=== PATIENT | female | born 1990 | race Caucasian/White ===

== ENCOUNTER 2016-12-11 01:10 | Emergency (ER) | payer MEDICAID ==
[2014-12-19 10:55] VITALS: BMI 40.8
[~2016-12-11 01:10] MED LIST: ACETAMINOPHEN500 M1 PO; BUSPAR5 MG PO; FLOVENT HFA 11012 GM INH; IBUPROFEN600 MG PO; PROTONIX40 MG PO; TUMS500 MG PO; ZPAK PO
[2016-12-11 01:44] LABS: BASOPHILS 0.6 % (0-2); EOSINOPHILS 1.3 % (0-7); HEMOGLOBIN 12.2 g/dL (12-16); IMMATURE GRANULOCYTES 0.4 % (0-5); LYMPHOCYTES 26.4 % (15-50); MCH 28.8 pg (26.0-34.0); MCHC 33.9 g/dL (31.0-37.0); MCV 84.9 fL (80.0-100.0); MEAN PLATELET VOLUME 8.7 fL (7.4-10.4); MONOCYTES 5.3 % (2-11); PLATELET COUNT 371 10x3/uL (130-400); RBC 4.24 10x6/uL (4.00-5.40); RDW 13.3 % (11.5-14.5); WBC 10.4 10x3/uL (4.8-10.8)
[2016-12-11 02:00] LABS: ALBUMIN 3.8 g/dL (3.4-5.0); ALKALINE PHOSPHATASE 81 U/L (46-116); ALT (SGPT) 27 U/L (10-68); CALC OSMOLALITY 279 mosm/kg (275-300); CALCIUM 8.9 mg/dL (8.5-10.1); CARBON DIOXIDE 24.8 mmol/L (21.0-32.0); CHLORIDE - SERUM 105 mmol/L (98-107); CREATININE - SERUM 0.8 mg/dL (0.6-1.3); GLUCOSE 100 mg/dL (74-106); PROTEIN - SERUM 7.9 g/dL (6.4-8.2); SODIUM 140 mmol/L (136-145); UREA NITROGEN 15 mg/dL (7-18); eGFR NON AFRICAN AMERICAN > 90 mL/min (90-120)
[2016-12-11 02:02] LABS: POTASSIUM - SERUM 2.9 mmol/L (3.5-5.1)
== END 2016-12-11 02:40 | disposition home or self-care (01) ==
LOC: D.ER 01:10
PROVIDERS: Emergency Medicine
DX: F41.0 Panic disorder [episodic paroxysmal anxiety] (principal)

== ENCOUNTER 2017-03-02 10:30 | Emergency (ER) | payer MEDICAID ==
[2014-12-19 10:55] VITALS: BMI 40.8
[2017-03-02 11:47] LABS: BASOPHILS 0.8 % (0-2); EOSINOPHILS 1.8 % (0-7); HEMATOCRIT 37.8 % (36.0-48.0); HEMOGLOBIN 12.8 g/dL (12-16); IMMATURE GRANULOCYTES 0.1 % (0-5); LYMPHOCYTES 24.2 % (15-50); MCH 29.2 pg (26.0-34.0); MCHC 33.9 g/dL (31.0-37.0); MCV 86.1 fL (80.0-100.0); MEAN PLATELET VOLUME 8.6 fL (7.4-10.4); MONOCYTES 7.2 % (2-11); NEUTROPHILS 65.9 % (40-80); PLATELET COUNT 335 10x3/uL (130-400); RBC 4.39 10x6/uL (4.00-5.40); RDW 13.3 % (11.5-14.5); WBC 8.3 10x3/uL (4.8-10.8)
[2017-03-02 12:52] LABS: HCG URINE NEGATIVE (NEGATIVE)
[2017-03-02 13:16] LABS: APPEARANCE HAZY (CLEAR); BACTERIA MANY /hpf (NONE SEEN); BILIRUBIN NEGATIVE (NEGATIVE); COLOR YELLOW (YELLOW); GLUCOSE NEGATIVE (NEGATIVE); KETONE SMALL mg/dL (NEGATIVE); LEUKOCYTE ESTERASE 1+ (NEGATIVE); NITRITE NEGATIVE (NEGATIVE); PROTEIN NEGATIVE (NEGATIVE); RED CELLS - URINE OCC /hpf (0-5); WHITE CELLS - URINE 0-5 /hpf (0-5)
[2017-03-02 13:17] LABS: MUCUS >1+ /lpf (NONE SEEN)
== END 2017-03-02 18:50 | disposition home or self-care (01) ==
LOC: D.ER 10:30
PROVIDERS: Emergency Medicine
DX: N76.0 Acute vaginitis (principal); K21.9 Gastro-esophageal reflux disease without esophagitis

== ENCOUNTER 2019-03-04 07:10 | Day surgery (SDC) | payer MEDICAID ==
[2019-03-01 11:07] LABS: CALC OSMOLALITY 276 mosm/kg (275-300); CALCIUM 8.8 mg/dL (8.5-10.1); CARBON DIOXIDE 27.8 mmol/L (21.0-32.0); CHLORIDE - SERUM 105 mmol/L (98-107); CREATININE - SERUM 0.7 mg/dL (0.6-1.3); GLUCOSE 89 mg/dL (74-106); POTASSIUM - SERUM 4.2 mmol/L (3.5-5.1); SODIUM 140 mmol/L (136-145); UREA NITROGEN 9 mg/dL (7-18); eGFR NON AFRICAN AMERICAN > 90 mL/min (90-120)
[2019-03-01 11:13] LABS: HEMATOCRIT 37.8 % (36.0-48.0); HEMOGLOBIN 12.9 g/dL (12-16); LYMPHOCYTES 33.4 % (15-50); MCH 29.1 pg (26.0-34.0); MCHC 34.1 g/dL (31.0-37.0); MCV 85.3 fL (80.0-100.0); MEAN PLATELET VOLUME 8.2 fL (7.4-10.4); NEUTROPHILS 57.9 % (40-80); PLATELET COUNT 354 10x3/uL (130-400); RBC 4.43 10x6/uL (4.00-5.40); RDW 13.5 % (11.5-14.5); WBC 7.8 10x3/uL (4.8-10.8)
[~2019-03-04] VITALS: Ht 160 cm; Wt 104.5 kg
[2019-03-04] MEDS ORDERED: BUTALB-APAP-CA1 EACH PO (07:35)
[2019-03-04 07:44] VITALS: BP 119/86; BMI 40.8
[2019-03-04 08:07] LABS: HCG URINE NEGATIVE (NEGATIVE)
[2019-03-04] MEDS ORDERED: IBUPROFEN200 MG PO (18:03)
--- NOTE | 2019-03-04 18:05 | NUR ---
RECIEVED PT FROM SURGERY VIA BED. PT IS STILL GROGGY FROM ANESTHESIA. ABDI NOTED WITH CLEAR, YELLOW URINE. DENIES PAIN OR NEEDS AT THIS TIME. VSS STABLE. RR EVEN AND UNLABORED. FAMILY AT BEDSIDE. BED IN LOWEST POSITION. CALL LIGHT WITHIN REACH. WILL CONTINUE TO MONITOR.
[2019-03-04 18:13] VITALS: BP 119/63; Ht 160 cm; Wt 104.5 kg
--- NOTE | 2019-03-04 18:47 | NUR ---
PT C/O NAUSEA. ZOFRAN ADMINISTERED ORDERED. PT ENCOURAGED TO EAT SOMETHING SHE HAS NOT EATEN SINCE MIDNIGHT. CRACKERS AND LEMON MATCH-E-BE-NASH-SHE-WISH BAND SODA RECIEVED. PT GIVEN COLD WASH CLOTH TO PUT ON FOREHEAD. LIPS AND FACE WENT PALE. BP 128/65. FSBS 114. FAMILY AT BEDSIDE. WILL CONTINUE TO MONITOR.
--- NOTE | 2019-03-04 19:10 | NUR ---
REPORT RECEIVED FROM OFF GOING NURSE. PT IS LAYING IN BED, COMPLAINS OF NAUSEA AT THIS TIME. NO PRN MEDICATIONS AVAILABLE FOR ADMINISTRATION. REWET HER COOL WASH CLOTH AND PUT ON HER FOREHEAD. PT DENIED FURTHER NEEDS AT THIS TIME. SHIFT ASSESSMENT COMPLETED, SEE FLOWSHEET FOR DETAILS. WILL CONTINUE TO MONITOR.
[2019-03-04 19:37] VITALS: BP 112/54
[2019-03-05 00:45] VITALS: BP 107/51
[2019-03-05 06:01] VITALS: BP 92/43
[2019-03-05 07:28] VITALS: BP 96/37
--- NOTE | 2019-03-05 10:00 | NUR ---
PT ASSISTED TO BATHROOM. VOID 350 MLS YELLOW, CLEAR URINE. PT AMBULATED IN HALLWAY WITH STANDBY ASSIST. BED AND LINENS CHANGED. PT SAT UP IN CHAIR FOR APPROX. 30 MINUTES. AND WAS ABLE TO TOLERATE BREAKFAST.
[2019-03-05 11:00] VITALS: BP 100/47
--- NOTE | 2019-03-05 11:35 | NUR ---
ASSISTED PT TO BATHROOM. VOID 800ML CLEAR, YELLOW URINE. PT DENIES NEEDS AT THIS TIME.
--- NOTE | 2019-03-05 12:30 | NUR ---
I have reviewed this patient and I concur with the Shift Assessment completed by the Licensed Practical Nurse today this shift. DR STEPHEN IN TO SEE PATIENT AT THIS TIME FOR DISCHARGE.
[2019-03-05] MEDS ORDERED: IBUPROFEN800 MG PO (14:49)
--- NOTE | 2019-03-05 14:49 | NUR ---
PRESCRIPTIONS COPIED AND PLACED ON CHART. FAMILY REQUESTED TO HAVE PRESCRIPTIONS SO THEY COULD GO GET FILLED.
[2019-03-05] MEDS ORDERED: PERCOCET 7.5/321 TAB PO (14:50)
--- NOTE | 2019-03-05 17:33 | NUR ---
IV D/C WITH CATHETER TIP INTACT. D/C PAPERWORK REVIEWED AND SIGNED WITH PT. ALL BELONGINGS SENT WITH PT. PT LEFT VIA WHEELCHAIR TO PERSONAL VEHICLE.
== END 2019-03-05 17:47 | disposition home or self-care (01) ==
LOC: D.OPS 07:10 → D.PAN 09:30 → D.OPS 09:30 → D.PAN 10:00 → D.OPS 10:00 → D.M3 17:52 → D.OPS 03-05 17:47
PROVIDERS: ATTEND Obstetrics & Gynecology
DX: N93.8 Other specified abnormal uterine and vaginal bleeding (principal); N94.6 Dysmenorrhea, unspecified

== ENCOUNTER 2019-03-14 16:00 | Emergency (ER) | payer MEDICAID ==
[~2019-03-14] VITALS: Ht 160 cm; Wt 106.8 kg
[~2019-03-14 16:00] MED LIST changes: +BUTALB-APAP-CA1 EACH PO; +IBUPROFEN200 MG PO; +IBUPROFEN800 MG PO; +PERCOCET 7.5/321 TAB PO
[2019-03-14 16:10] VITALS: Ht 160 cm; Wt 106.8 kg
[2019-03-14 16:30] LABS: BASOPHILS 0.9 % (0-2); EOSINOPHILS 6.1 % (0-7); HEMATOCRIT 40.2 % (36.0-48.0); HEMOGLOBIN 13.8 g/dL (12-16); IMMATURE GRANULOCYTES 0.3 % (0-5); LYMPHOCYTES 23.9 % (15-50); MCH 29.1 pg (26.0-34.0); MCHC 34.3 g/dL (31.0-37.0); MCV 84.6 fL (80.0-100.0); MEAN PLATELET VOLUME 8.7 fL (7.4-10.4); MONOCYTES 7.1 % (2-11); NEUTROPHILS 61.7 % (40-80); PLATELET COUNT 424 10x3/uL (130-400); RBC 4.75 10x6/uL (4.00-5.40); RDW 13.3 % (11.5-14.5); WBC 11.9 10x3/uL (4.8-10.8)
[2019-03-14 16:49] LABS: ALBUMIN 4.1 g/dL (3.4-5.0); ALKALINE PHOSPHATASE 85 U/L (46-116); ALT (SGPT) 38 U/L (10-68); CALC OSMOLALITY 280 mosm/kg (275-300); CALCIUM 9.2 mg/dL (8.5-10.1); CHLORIDE - SERUM 105 mmol/L (98-107); CREATININE - SERUM 0.7 mg/dL (0.6-1.3); GLUCOSE 103 mg/dL (74-106); PROTEIN - SERUM 8.7 g/dL (6.4-8.2); SODIUM 142 mmol/L (136-145); UREA NITROGEN 8 mg/dL (7-18); eGFR NON AFRICAN AMERICAN > 90 mL/min (90-120)
[2019-03-14 16:52] LABS: AMYLASE - SERUM 32 U/L (25-115); LIPASE 111 U/L (73-393); TROPONIN-I < 0.017 ng/mL (0.000-0.060)
[2019-03-14 17:33] LABS: APPEARANCE CLEAR (CLEAR); COLOR YELLOW (YELLOW); NITRITE NEGATIVE (NEGATIVE); PROTEIN TRACE mg/dL (NEGATIVE); SPECIFIC GRAVITY 1.015 (1.005-1.020)
[2019-03-14 17:34] LABS: BILIRUBIN NEGATIVE (NEGATIVE); GLUCOSE NEGATIVE (NEGATIVE); KETONE LARGE mg/dL (NEGATIVE); UROBILINOGEN NORMAL (NORMAL)
[2019-03-14 17:35] LABS: BACTERIA FEW /hpf (NEGATIVE); RED CELLS - URINE 0-5 /hpf (0-5)
--- NOTE | 2019-03-14 19:39 | NUR ---
DR. WING NOTIFIED AND REVIEWED PT'S BEHAVIOR AND ASSESSMENT RESULTS. PT IS A LOW RISK PER DR. WING. DR. WING STATED TO GIVE RESOURCES TO PT AT TIME OF DISCHARGE. NO FURTHER ORDERS AT THIS TIME. RESOUCES REVIEWED WITH PT AND SHE VERBALIZED UNDERSTANDING.
[2019-03-14] MEDS ORDERED: CIPRO500 MG PO (20:10)
[2019-03-14 20:30] VITALS: BP 130/88
== END 2019-03-14 20:30 | disposition home or self-care (01) ==
LOC: D.ER 16:00
PROVIDERS: Emergency Medicine
DX: N39.0 Urinary tract infection, site not specified (principal); J45.909 Unspecified asthma, uncomplicated; R11.2 Nausea with vomiting, unspecified; R55 Syncope and collapse

== ENCOUNTER 2019-03-14 22:19 | Inpatient (IN) | payer MEDICAID ==
[~2019-03-14] VITALS: Ht 160 cm; Wt 106.6 kg
[~2019-03-14 22:19] MED LIST changes: +CIPRO500 MG PO
[2019-03-15 03:50] VITALS: BP 131/52
--- NOTE | 2019-03-15 07:10 | NUR ---
REPORT RECIEVED FROM SOUND EFFECTS TECHNICIAN AND PATIENT CARE ASSUMED. PATIENT LAYING IN BED WITH EYES CLOSED AND BREATHING EVENLY. WILL CONTINUE WITH PLAN OF CARE. SR UP X 2 BED IN LOW POSITION AND CALL LIGHT IN REACH.
[2019-03-15 08:00] VITALS: BP 117/52
--- NOTE | 2019-03-15 09:36 | NUR ---
ROUTINJE MEDS GIVEN. PATIENT IS STABLE AND VSS. WILL CONTINUE WITH PLAN OF CARE. SR UP X 2 BED IN LOW POSITION AND CALL LIGHT IN REACH.
[2019-03-15 11:30] VITALS: BP 102/60
[2019-03-15 13:35] VITALS: Ht 160 cm; Wt 106.6 kg
[2019-03-15 13:38] LABS: UDS - AMPHET POSITIVE QUAL (NEGATIVE); UDS - BARB NEGATIVE QUAL (NEGATIVE); UDS - BENZO NEGATIVE QUAL (NEGATIVE); UDS - COCAINE NEGATIVE QUAL (NEGATIVE); UDS - OPIATE NEGATIVE QUAL (NEGATIVE); UDS - PCP NEGATIVE QUAL (NEGATIVE); UDS - THC NEGATIVE QUAL (NEGATIVE)
--- NOTE | 2019-03-15 14:50 | NUR ---
PATIENT SITTING UP IN BED EATING LUNCH AND VISITING WITH MOTHER. PATIENT TOLERATING LIQUID WELL AND REQUESTING MORE BROTH. ORDER PUT IN. WILL CONTINUE TO MONITOR. SR UP X 2 BED IN LOW POSITION AND CALL LIGHT IN REACH.
[2019-03-15 16:00] VITALS: BP 123/57
--- NOTE | 2019-03-15 18:12 | NUR ---
PAGTIENT COMPLAINS OF IV TO RT AC. IV BEEPING WHEN PATIENT MOVES. IV IS NOT IFILLTRATED RED OR SWOLLEN. SL RT AC. RE-SITED IV TO LEFT HAND 20 G. PATIENT TOLERATED WELL. WILL CONTINUE TO MONITOR. SR UP X 2 BED IN LOW POSITION AND CALL LIGHT IN REACH.
[2019-03-15 18:35] LABS: BASOPHILS 1.1 % (0-2); EOSINOPHILS 7.2 % (0-7); HEMATOCRIT 33.9 % (36.0-48.0); HEMOGLOBIN 11.4 g/dL (12-16); IMMATURE GRANULOCYTES 0.4 % (0-5); LYMPHOCYTES 28.9 % (15-50); MCH 28.9 pg (26.0-34.0); MCHC 33.6 g/dL (31.0-37.0); MEAN PLATELET VOLUME 8.8 fL (7.4-10.4); MONOCYTES 9.1 % (2-11); NEUTROPHILS 53.3 % (40-80); PLATELET COUNT 362 10x3/uL (130-400); RBC 3.94 10x6/uL (4.00-5.40); RDW 13.3 % (11.5-14.5)
[2019-03-15 18:55] LABS: APTT 29.9 SECONDS (22.8-39.4)
[2019-03-15 18:56] LABS: INR 1.2 (0.85-1.17); PROTIME 14.7 SECONDS (11.6-15.0)
[2019-03-15 18:58] LABS: ALBUMIN 3.1 g/dL (3.4-5.0); ALKALINE PHOSPHATASE 70 U/L (46-116); ALT (SGPT) 41 U/L (10-68); BILIRUBIN - TOTAL 0.45 mg/dL (0.2-1.3); CALC OSMOLALITY 281 mosm/kg (275-300); CARBON DIOXIDE 25.9 mmol/L (21.0-32.0); CHLORIDE - SERUM 109 mmol/L (98-107); CREATININE - SERUM 0.8 mg/dL (0.6-1.3); GLUCOSE 110 mg/dL (74-106); MAGNESIUM - SERUM 2.1 mg/dL (1.8-2.4); PROTEIN - SERUM 6.8 g/dL (6.4-8.2); SODIUM 142 mmol/L (136-145); UREA NITROGEN 6 mg/dL (7-18); eGFR NON AFRICAN AMERICAN 90 mL/min (90-120)
[2019-03-15 18:59] LABS: POTASSIUM - SERUM 2.8 mmol/L (3.5-5.1)
[2019-03-15 19:10] LABS: CKMB 0.1 U/L (0.0-3.6); CREATINE KINASE 57 UL (21-215)
[2019-03-15 19:13] LABS: TROPONIN-I < 0.017 ng/mL (0.000-0.060)
[2019-03-15 19:24] VITALS: BP 113/64
--- NOTE | 2019-03-15 19:25 | MORECARE ---
CASE MANAGEMENT DISCHARGE SUMMARY PATIENT: NATHANAEL STOUT UNIT: [id number] ADM DATE: 03/15/19 AGE: 29 : 90 SEX: F ROOM/BED: D.1210 AUTHOR: CARRIE HUBBARD PHYSICIAN: REFERRING PHYSICIAN: DIEGO VALLE MD DATE OF SERVICE: 03/15/19 Discharge Plan Patient Name: NATHANAEL STOUT [facility] [facility] 1990 Planned Disposition: Home Anticipated Discharge Date: Discharge Date: Expected LOS: Initial Reviewer: [email or web address] Initial Review Date: 03/15/2019 Generated: 03/15/19 8:24 pm Patient Name: NATHANAEL STOUT Page [id number] at 1925 All edits/amendments must be made on the electronic document DICTATION DATE: 03/15/191923 ANESTHESIOLOGY PHYSICIAN: AMY 03/15/191923 RPT#: [id number] DC DATE: STATUS: ADM IN [facility] [address] [place] [address] END OF REPORT
--- NOTE | 2019-03-15 19:31 | MORECARE ---
CASE MANAGEMENT DISCHARGE SUMMARY PATIENT: NATHANAEL STOUT UNIT: [id number] ADM DATE: 03/15/19 AGE: 29 : 90 SEX: F ROOM/BED: D.1210 AUTHOR: CARRIE HUBBARD PHYSICIAN: REFERRING PHYSICIAN: DIEGO VALLE MD DATE OF SERVICE: 03/15/19 Discharge Plan Patient Name: NATHANAEL STOUT [facility] [facility] 1990 Planned Disposition: Home Anticipated Discharge Date: Discharge Date: Expected LOS: Initial Reviewer: [email or web address] Initial Review Date: 03/15/2019 Generated: 03/15/19 8:31 pm DCPIA - Discharge Planning Initial Assessment Updated by [email or web address]: Giana Ceron on 03/15/19 7:28 pm * Is the patient Alert and Oriented? Yes * How many steps to enter\exit or inside your home? 15 * PCP TONNY BARNETT * Pharmacy [facility] * Preadmission Environment Home with Family * ADLs Independent * Equipment None * List name and contact numbers for known caregivers / representatives who currently or will assist patient after discharge: ARIANNE BRODY [facility] [phone] * Verbal permission to speak to the caregivers and representatives has been obtained from the patient. N/A * Community resources currently utilized None * Additional services required to return to the preadmission environment? No * Can the patient safely return to the preadmission environment? Yes * Has this patient been hospitalized within the prior 30 days at any hospital? No Last DP export: 03/15/19 6:25 p Patient Name: NATHANAEL STOUT Page [id number] at 1931 All edits/amendments must be made on the electronic document DICTATION DATE: 03/15/191930 CAR STOWER: AMY 03/15/191930 RPT#: [id number] DC DATE: STATUS: ADM IN [facility] [address] [place] [address] END OF REPORT
--- NOTE | 2019-03-15 19:32 | NUR ---
EVENING ROUNDS COMPLETED. VSS, AAOX3, BUT LETHARGIC, NO S/S OF DISTRESS. PT STATES SHE HAS BEEN SLEEPING ALL DAY. PT ALSO C/O OF FEELING HUNGRY. WILL PROVIDED A CLR LIQUID DIET. PT DENIES ANY FURTHER NEEDS AT THIS TIME. K+ 2.8, BUT ALREADY TREATED BY OUTGOING NURSE. WILL REASSESS IN THE AM. CL WITHIN REACH.
--- NOTE | 2019-03-15 19:38 | MORECARE ---
CASE MANAGEMENT DISCHARGE SUMMARY PATIENT: NATHANAEL STOUT UNIT: [id number] ADM DATE: 03/15/19 AGE: 29 : 90 SEX: F ROOM/BED: D.1210 AUTHOR: STEVIEDOC PHYSICIAN: REFERRING PHYSICIAN: DIEGO VALLE MD DATE OF SERVICE: 03/15/19 Discharge Plan Patient Name: NATHANAEL STOUT Facility: [facility]:[place] : 1990 Planned Disposition: Home Anticipated Discharge Date: Discharge Date: Expected LOS: Initial Reviewer: [email or web address] Initial Review Date: 03/15/2019 Generated: 03/15/19 8:38 pm Comments DCP- Discharge Planning Updated by [email or web address]: Giana Ceron on 03/15/19 6:[address] Patient Name: NATHANAEL STOUT Admission Status: ER Accout number: [id number] Admission Date: 03-15-2019 : 1990 Admission Diagnosis: Attending: DIEGO VALLE Current LOS: 1 Anticipated DC Date: Planned Disposition: Home Primary Insurance: MEDICAID [place] Discharge Planning Comments: CM met with patient to complete initial dc planning assessment. Patient is very drowsy kept her eyes closed during most of the assessment. CM educated patient on the CM role and verbal consent given by patient to complete assessment. Patient lives at home with her family where she is independent with her care. At discharge patient plans to return home and feels this is a safe discharge. CM discussed availability of home health, rehab services, and medical equipment. Patient denied known discharge needs at this time. CM will continue to follow and will assist as needed with dc plans/needs. Rigging Up Man: Giana Ceron DCPIA - Discharge Planning Initial Assessment Updated by [email or web address]: Giana Ceron on 03/15/19 7:28 pm * Is the patient Alert and Oriented? Yes * How many steps to enter\exit or inside your home? 15 * PCP TONNY BARNETT * Pharmacy [facility] * Preadmission Environment Home with Family * ADLs Independent * Equipment None * List name and contact numbers for known caregivers / representatives who currently or will assist patient after discharge: ARIANNE BRODY - [facility]- [phone] * Verbal permission to speak to the caregivers and representatives has been obtained from the patient. N/A * Community resources currently utilized None * Additional services required to return to the preadmission environment? No * Can the patient safely return to the preadmission environment? Yes * Has this patient been hospitalized within the prior 30 days at any hospital? No Last DP export: 03/15/19 6:31 p Patient Name: NATHANAEL STOUT Page [id number] at 1938 All edits/amendments must be made on the electronic document DICTATION DATE: 03/15/191937 LEAN ENGINEER: AMY 03/15/191937 RPT#: [id number] DC DATE: STATUS: ADM IN [facility] [address] [place] [address] END OF REPORT
[2019-03-15 23:35] VITALS: BP 112/76
[2019-03-16 00:30] LABS: CKMB 0.4 U/L (0.0-3.6); CREATINE KINASE 40 UL (21-215)
[2019-03-16 00:33] LABS: TROPONIN-I < 0.017 ng/mL (0.000-0.060)
[2019-03-16 04:00] VITALS: BP 92/55
[2019-03-16 06:18] LABS: BASOPHILS 1.1 % (0-2); EOSINOPHILS 6.3 % (0-7); HEMATOCRIT 34.1 % (36.0-48.0); HEMOGLOBIN 11.2 g/dL (12-16); IMMATURE GRANULOCYTES 0.5 % (0-5); LYMPHOCYTES 30.6 % (15-50); MCH 28.4 pg (26.0-34.0); MCHC 32.8 g/dL (31.0-37.0); MCV 86.5 fL (80.0-100.0); MEAN PLATELET VOLUME 8.8 fL (7.4-10.4); MONOCYTES 8.2 % (2-11); NEUTROPHILS 53.3 % (40-80); PLATELET COUNT 351 10x3/uL (130-400); RBC 3.94 10x6/uL (4.00-5.40); RDW 13.4 % (11.5-14.5); WBC 8.4 10x3/uL (4.8-10.8)
[2019-03-16 06:44] LABS: CALC OSMOLALITY 281 mosm/kg (275-300); CARBON DIOXIDE 25.4 mmol/L (21.0-32.0); CHLORIDE - SERUM 109 mmol/L (98-107); CKMB 0.3 U/L (0.0-3.6); CREATINE KINASE 40 UL (21-215); CREATININE - SERUM 0.7 mg/dL (0.6-1.3); GLUCOSE 99 mg/dL (74-106); MAGNESIUM - SERUM 1.9 mg/dL (1.8-2.4); PHOSPHOROUS 2.9 mg/dL (2.5-4.9); POTASSIUM - SERUM 3.3 mmol/L (3.5-5.1); SODIUM 143 mmol/L (136-145); TROPONIN-I < 0.017 ng/mL (0.000-0.060); UREA NITROGEN 4 mg/dL (7-18); eGFR NON AFRICAN AMERICAN > 90 mL/min (90-120)
--- NOTE | 2019-03-16 07:10 | NUR ---
REPORT RECEIVED FROM MINI LAB OPERATOR AND PATIENT CARE ASSUMED. PATIENT LAYING IN BED ON RT SIDE WITH EYES CLOSED AND BREATHING EVENLY. PATIENT IS STABLE AND VSS. WILL CONTINUE WITH PLAN OF CARE. SR UP X 2 BED IN LOW POSITION AND CALL LIGHT IN REACH.
[2019-03-16 07:41] VITALS: BP 107/71
--- NOTE | 2019-03-16 09:00 | NUR ---
ROUTINE MEDS GIVEN INCLUDING KDUR 40 DUE TO K+ LEVEL LOW AT 3.3. PATIENT IS AWAKE, ALERT AND ORIENTED X 4. PATIENT STATES SHE FEELS BETTER AND REQUEST A SHOWER. PROVIDED PATIENT WITH NECESSARY TOILETRIES, TOWELS AND GOWN. COMPLETE LINEN CHANGE COMPLETED. PATIENT TOLERATED SHOWER WELL AND REQUESTED ADDITIONAL BOWL OF BROTH. PATIENT DENEIS ANY OTHER NEEDS OR PAIN. WILL CONTINUE WITH PLAN OF CARE. SR UP X 2 BED IN LOW POSITION AND CALL LIGHT IN REACH.
[2019-03-16 12:19] VITALS: BP 94/67
--- NOTE | 2019-03-16 13:29 | NUR ---
PATIENT HAS BEEN SLEEPING MOST ALL DAY. AROUSES TO VOICE.PATIENT UP TO BATHROOM. PATIENT IN BS CHAIR. CALL LIGHT IN REACH.
--- NOTE | 2019-03-16 15:33 | NUR ---
DR AMBROSE ON UNIT AND SAW PATIENT. NEW ORDER RECEVIED FOR DC.
[2019-03-16] MEDS ORDERED: DIFLUCAN150 MG PO (16:10)
[2019-03-16] MEDS ORDERED: OMNICEF300 MG PO (16:12)
[2019-03-16 16:19] VITALS: BP 121/67
--- NOTE | 2019-03-16 17:22 | NUR ---
WRITTEN AND ORAL INSTRUCTIONS GIVEN TO PATIENT. PATIENT VERBALIZED UNDERSTANDING AND SIGNED INSTRUCTIONS. IV DCD WITHOUT DIFFICULTY WITH ENTIRE CATHETER INTACT. PATIENT IS STABLE AND VSS. PATIENT GETTING DRESSED AND WAITING ON RIDE.
--- NOTE | 2019-03-18 08:57 | MORECARE ---
CASE MANAGEMENT DISCHARGE SUMMARY PATIENT: NATHANAEL STOUT UNIT: [id number] ADM DATE: 03/15/19 AGE: 29 : 90 SEX: F ROOM/BED: D.1210 AUTHOR: STEVIEDOC PHYSICIAN: REFERRING PHYSICIAN: DIEGO VALLE MD DATE OF SERVICE: 03/18/19 Discharge Plan Patient Name: NATHANAEL STOUT Facility: [facility]:[place] : 1990 Planned Disposition: Home Anticipated Discharge Date: Discharge Date: 03/16/2019 Expected LOS: Initial Reviewer: [email or web address] Initial Review Date: 03/15/2019 Generated: 03/18/19 9:56 am Comments DCP- Discharge Planning Updated by [email or web address]: Giana Ceron on 03/15/19 6:[address] Patient Name: NATHANAEL STOUT Admission Status: ER Accout number: [id number] Admission Date: 03-15-2019 : 1990 Admission Diagnosis: Attending: DIEGO VALLE Current LOS: 1 Anticipated DC Date: Planned Disposition: Home Primary Insurance: MEDICAID [place] Discharge Planning Comments: CM met with patient to complete initial dc planning assessment. Patient is very drowsy kept her eyes closed during most of the assessment. CM educated patient on the CM role and verbal consent given by patient to complete assessment. Patient lives at home with her family where she is independent with her care. At discharge patient plans to return home and feels this is a safe discharge. CM discussed availability of home health, rehab services, and medical equipment. Patient denied known discharge needs at this time. CM will continue to follow and will assist as needed with dc plans/needs. Fruit Packer Face And Fill: Giana Ceron DCPIA - Discharge Planning Initial Assessment Updated by [email or web address]: Giana Ceron on 03/15/19 7:28 pm * Is the patient Alert and Oriented? Yes * How many steps to enter\exit or inside your home? 15 * PCP TONNY BARNETT * Pharmacy [facility] * Preadmission Environment Home with Family * ADLs Independent * Equipment None * List name and contact numbers for known caregivers / representatives who currently or will assist patient after discharge: ARIANNE BRODY - [facility]- [phone] * Verbal permission to speak to the caregivers and representatives has been obtained from the patient. N/A * Community resources currently utilized None * Additional services required to return to the preadmission environment? No * Can the patient safely return to the preadmission environment? Yes * Has this patient been hospitalized within the prior 30 days at any hospital? No Last DP export: 03/15/19 6:38 p Patient Name: NATHANAEL STOUT Page 50717 at 0857 All edits/amendments must be made on the electronic document DICTATION DATE: 03/18/19855 DIESEL TRUCK MECHANIC: AMY 03/18/19855 RPT#: [id number] DC DATE:03/16/19 STATUS: DIS IN [facility] [address] [place] [address] END OF REPORT
== END 2019-03-16 18:46 | disposition home or self-care (01) | DRG 758 ==
LOC: D.ER 22:19 → D.M3 03-15 02:46
PROVIDERS: Family Medicine; ADMIT Family Medicine; ATTEND Family Medicine
DX: A59.01 Trichomonal vulvovaginitis (principal); N12 Tubulo-interstitial nephritis, not specified as acute or chronic; E87.6 Hypokalemia; K21.9 Gastro-esophageal reflux disease without esophagitis; F31.9 Bipolar disorder, unspecified